=== PATIENT | male | born 1955 | race Caucasian/White ===

== ENCOUNTER 2018-03-20 10:00 | Emergency (ER) | payer OTHER ==
[~2018-03-20] VITALS: Ht 165.1 cm; Wt 70.0 kg
[~2018-03-20 10:00] MED LIST: BACTRIM DS1 TAB PO; FENOFIBRATE48 MG PO; FEXOFENADINE H180 MG PO; FLEXERIL10 MG PO; FLUTICASONE50 MCG; KEFLEX500 M1 PO; KEFLEX500 MG OR; LORTAB5 PO; LOVASTATIN40 MG PO; MEVACOR20 M1 PO; NAPROSYN500 MG OR; NAPROXEN500 MG PO; PREVACID30 M2 PO; ULTRAM50 M1 PO; VIAGRA25 MG PO; VICODIN1 TAB OR; cholesterol pill
[2018-03-20 10:12] VITALS: BP 132/91
[2018-03-20] MEDS ORDERED: CEPHALEXIN500 M1 PO (10:27)
[2018-03-20] MEDS ORDERED: BACTRIM DS1 TAB PO (10:27)
== END 2018-03-20 10:40 | disposition home or self-care (01) ==
LOC: ED 10:00
DX: R22.1 Localized swelling, mass and lump, neck (principal)

== ENCOUNTER → 2020-12-05 | Outpatient (REF) | payer MEDICARE ==
[~2020-12-05] MED LIST changes: +CEPHALEXIN500 M1 PO
[2020-12-05 09:10] LABS: ALKALINE PHOSPHATASE 52 u/l (38-126); ANION GAP 12 (6-22 (CALC)); BILIRUBIN, TOTAL 0.5 mg/dL (0.0-1.4); BUN 13 mg/dL (8-23); BUN/CREATININE RATIO 12 (12-20 (CALC)); CALCULATED LDLCHOLESTEROL 175 mg/dL (62-129 (CALC)); CARBON DIOXIDE 29 mmol/l (22-30); CHLORIDE 103 mmol/l (95-108); CHOLESTEROL HDL RATIO 6.3 (<4.4 (CALC)); CREATININE 1.1 mg/dL (0.7-1.3); GFR > 60 ML/MIN (>=60 (CALC)); GFR FOR AFR.AMER. > 60 ML/MIN (>=60 (CALC)); HDL CHOLESTEROL 41 mg/dL (>=40); POTASSIUM 4.2 mmol/l (3.5-5.1); SGOT/AST 24 u/l (19-48); SODIUM 140 mmol/l (137-146); TOTAL CHOLESTEROL 262 mg/dl (0-199); TOTAL PROTEIN 7.4 g/dL (6.3-8.2); TOTAL TRIGLYCERIDES 229 mg/dl (30-149); VLDL CHOLESTROL 46 mg/dl (4-45 (CALC))
== END | disposition home or self-care (01) ==
LOC: LAB 08:13
PROVIDERS: ATTEND Internal Medicine
DX: E78.5 Hyperlipidemia, unspecified (principal); Z68.27 Body mass index [BMI] 27.0-27.9, adult